=== PATIENT | female | born 1965 | race Caucasian/White ===

== ENCOUNTER → 2022-07-03 | Day surgery (SDC) | payer OTHER | END | disposition home or self-care (01) | LOC: FRADUS-SUR 09:53 | PROVIDERS: ATTEND Obstetrics & Gynecology | PROC: 0HBT3ZX Excision of Right Breast, Percutaneous Approach, Diagnostic (ICD-10-PCS; principal; 2022-07-03) | DX: N60.81 Other benign mammary dysplasias of right breast (principal); R92.8 Other abnormal and inconclusive findings on diagnostic imaging of breast | CPT/HCPCS: 19085; 77065-TC; 88305-TC; A4648; A9579; C1887 ==